=== PATIENT | male | born 1980 | race Caucasian/White ===

== ENCOUNTER 2017-05-03 11:05 | Emergency (ER) | payer MEDICARE, MEDICAID ==
[~2017-05-03] VITALS: Ht 180.3 cm; Wt 97.0 kg
[2017-05-03] MEDS ORDERED: LORazepam 1 MG tablet PO ONE (12:20)
[2017-05-03 12:51] VITALS: BP 135/93
== END 2017-05-03 12:52 | disposition home or self-care (01) ==
LOC: ER 11:06
DX: F41.9 Anxiety disorder, unspecified (principal); F20.9 Schizophrenia, unspecified; F31.9 Bipolar disorder, unspecified
CPT/HCPCS: 99283; 99284